=== PATIENT | male | born 1975 | race Caucasian/White ===

== ENCOUNTER 2020-02-22 03:21 | Emergency (ER) | payer OTHER, MEDICAID ==
[2020-02-22] MEDS ORDERED: Sodium Chloride 0.9% 10 ML Syringe FLUSH PRN (03:33)
[2020-02-22] MEDS ORDERED: fentaNYL 100 MCG/2 ML SDV IVPUSH ONE ×2 (03:33→04:56)
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
[2020-02-22] MEDS ORDERED: Sodium Chloride 0.9% 1,000 ML IV SCH (03:45)
[2020-02-22] MEDS ORDERED: Iopamidol 612 MG/ML 100 ML Bottle IV STA (03:56)
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
[2020-02-22] MEDS ORDERED: Ketamine 500 MG/5 ML MDV IV ONE (05:09)
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
[2020-02-22] MEDS ORDERED: ceFAZolin 1 GM in Premix Bag 1 BAG IV ONE (05:30)
[2020-02-22] MEDS ORDERED: Sodium Chloride 0.9% 50 ML ONE (05:34)
[2020-02-22] MEDS ORDERED: ceFAZolin 1 GM Vial ONE (05:34)
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
== END 2020-02-22 06:20 ==
LOC: JP.ED 03:21
DX: S72.471A Torus fracture of lower end of right femur, initial encounter for closed fracture (principal); S42.211A Unspecified displaced fracture of surgical neck of right humerus, initial encounter for closed fracture; V89.2XXA Person injured in unspecified motor-vehicle accident, traffic, initial encounter
CPT/HCPCS: 36415; 70450; 70486; 71260; 72125; 73060; 73560; 74177; 80053; 80305; 80307; 81001; 85025; 85610; 85730; 96365; 96375; 99285; G0390; J0690; J3010; J7030; Q9967